=== PATIENT | male | born 1940 | race Caucasian/White ===

== ENCOUNTER 2017-08-22 12:13 | Emergency (ER) | payer MEDICARE ==
[2017-08-22] MEDS ORDERED: DEXAMETHASONE SOD PHOSPHATE 10MG/ML 1ML VIAL ONE (13:47)
[2017-08-22] MEDS ORDERED: KETOROLAC TROMETHAMINE 15MG/ML ONE (13:47)
[2017-08-22] MEDS ORDERED: MORPHINE SULFATE 4 MG/1ML SYG ONE (16:15)
[2017-08-22] MEDS ORDERED: MORPHINE SULFATE 2 MG/ML 1ML SYG ONE (17:29)
== END 2017-08-22 18:00 | disposition home or self-care (01) ==
LOC: EDH 12:13
DX: M54.32 Sciatica, left side (principal); I10 Essential (primary) hypertension; I48.91 Unspecified atrial fibrillation; E78.5 Hyperlipidemia, unspecified; I25.10 Atherosclerotic heart disease of native coronary artery without angina pectoris
CPT/HCPCS: 72100; 96374; 96375; 96376; 99284; J1100; J1885; J2270

== ENCOUNTER → 2017-10-11 | Outpatient (CLI) | payer MEDICARE | END | disposition home or self-care (01) | LOC: RAH 10:30 | PROVIDERS: ATTEND Internal Medicine Cardiovascular Disease | DX: I82.442 Acute embolism and thrombosis of left tibial vein (principal); M71.20 Synovial cyst of popliteal space [Baker], unspecified knee | CPT/HCPCS: 76770; 93971 ==

== ENCOUNTER → 2017-10-31 | Outpatient (CLI) | payer MEDICARE | END | disposition home or self-care (01) | LOC: RAH 13:05 | PROVIDERS: ATTEND Physical Medicine & Rehabilitation | DX: S14.109A Unspecified injury at unspecified level of cervical spinal cord, initial encounter (principal); M47.892 Other spondylosis, cervical region; M25.78 Osteophyte, vertebrae; X58.XXXA Exposure to other specified factors, initial encounter; Y93.89 Activity, other specified; Y92.89 Other specified places as the place of occurrence of the external cause; Y99.8 Other external cause status | CPT/HCPCS: 72141 ==

== ENCOUNTER → 2019-05-10 | Outpatient (CLI) | payer MEDICARE | END | disposition home or self-care (01) | LOC: RAH 11:30 | PROVIDERS: ATTEND Internal Medicine Cardiovascular Disease | DX: M71.22 Synovial cyst of popliteal space [Baker], left knee (principal); I82.403 Acute embolism and thrombosis of unspecified deep veins of lower extremity, bilateral | CPT/HCPCS: 93971 ==

== ENCOUNTER → 2021-08-19 | Outpatient (CLI) | payer MEDICARE | END | disposition home or self-care (01) | LOC: RAH 11:57 | PROVIDERS: ATTEND Physical Medicine & Rehabilitation | DX: S32.010A Wedge compression fracture of first lumbar vertebra, initial encounter for closed fracture (principal); G62.9 Polyneuropathy, unspecified; X58.XXXA Exposure to other specified factors, initial encounter; Y93.89 Activity, other specified; Y92.89 Other specified places as the place of occurrence of the external cause; Y99.8 Other external cause status | CPT/HCPCS: 72100 ==

== ENCOUNTER → 2021-11-18 | Outpatient (CLI) | payer MEDICARE | END | disposition home or self-care (01) | LOC: RAH 11:08 | PROVIDERS: ATTEND Physical Medicine & Rehabilitation | DX: I67.82 Cerebral ischemia (principal); R41.3 Other amnesia; U09.9 Post COVID-19 condition, unspecified | CPT/HCPCS: 70551 ==